=== PATIENT | male | born 1930 | race Caucasian/White ===

== ENCOUNTER 2020-06-06 12:18 | Inpatient (IN) ==
[2020-06-06] MEDS ORDERED: FUROSEMIDE 100 MG/10 ML VIAL IV STA (13:01)
[2020-06-06] MEDS ORDERED: FUROSEMIDE 100 MG/10 ML VIAL ONE (13:03)
[2020-06-06 13:12] LABS: Basophils % 0.2 % (0.0-0.8); Eosinophils % 0.2 % (0.00-10.9); Hematocrit 43.9 VOL% (42.0-52.0); Hemoglobin 13.6 GM/DL (14.0-18.0); Immature Granulocytes % 0.6 %; Immature Granulocytes Absolute 0.05 #; Lymphocytes # 0.7 10*3/uL (1.4-4.0); Lymphocytes % 8.5 % (21.2-54.2); Mean Platelet Volume 9.1 FL (9.6-12.0); Monocytes % 10.5 % (1.7-12.7); NRBC # 0.02 10*3/uL; Platelet Count 328 T/CUMM (130-400); Red Blood Count 4.93 MC/CUMM (3.8-5.5); Red Cell Distribution Width 15.7 % (9.3-17.3); White Blood Count 8.4 T/CUMM (4-12)
[2020-06-06 13:30] LABS: Albumin 3.5 G/DL (3.4-5.0); Bilirubin,Total 0.8 MG/DL (0.2-1.0); Osmolality,Calculated 291.1 MOS/KG (273-304); Potassium 4.9 MMOL/L (3.5-5.1); Total Protein 6.9 G/DL (5.0-7.5)
[2020-06-06 14:13] LABS: Bilirubin,Urine Negative (Negative); Blood, Urine Negative (Negative); Glucose,Urine (UA) Negative (Negative); Hyaline Casts,Urine 4 /LPF (0-3); Ketones,Urine Negative (Negative); Mucus,Urine Occasional /LPF (Occasional); Nitrite,Urine Negative (Negative); Protein,Urine Negative; RBC,Urine 1 /HPF (0-4); Sperm,Urine Occasional /HPF (Negative); Urine Appearance CLEAR (Clear); Urine Color Yellow (Yellow); Urine Specific Gravity 1.011 (1.001-1.035); Urine Urobilinogen < 2.0 EU/DL (0.2-1.0)
[2020-06-06] MEDS ORDERED: GLUCAGON 1 MG VIAL IM PRN (15:28)
[2020-06-06] MEDS ORDERED: MORPHINE 4 MG/1 ML VIAL IV PRN (15:28)
[2020-06-06] MEDS ORDERED: ACETAMINOPHEN 325 MG TABLET PO PRN (15:28)
[2020-06-06] MEDS ORDERED: DEXTROSE 50% 25 GM/50 ML VIAL IV PRN (15:28)
[2020-06-06] MEDS ORDERED: ONDANSETRON 4 MG/2 ML VIAL IV PRN (15:28)
[2020-06-06] MEDS ORDERED: MELATONIN PYRIDOXINE HCL PO PRN (15:33)
[2020-06-06] MEDS: INSULIN LISPRO 100 UNIT/ML SUBCUT SCH ×2 (17:44→21:10)
[2020-06-06] MEDS: FUROSEMIDE 40 MG/4 ML VIAL IV SCH (17:44)
[2020-06-06] MEDS: SODIUM CHLORIDE 0.45% 1,000 ML IV SCH (17:44)
[2020-06-06] MEDS: DOCUSATE SODIUM 100 MG CAPSULE PO SCH (21:31)
[2020-06-06] MEDS: DILTIAZEM 30 MG TABLET PO SCH (21:31)
[2020-06-06] MEDS: ENOXAPARIN 40 MG/0.4 ML SYRINGE SUBCUT SCH (21:31)
[2020-06-06] MEDS: GLIMEPIRIDE 2 MG TABLET PO SCH (21:31)
[2020-06-06] MEDS: traZODone 50 MG TABLET PO SCH (21:44)
[2020-06-07 05:44] LABS: Calcium 8.4 MG/DL (8.5-10.1); Osmolality,Calculated 293.7 MOS/KG (273-304)
[2020-06-07] MEDS: DOCUSATE SODIUM 100 MG CAPSULE PO SCH ×2 (09:36→21:55)
[2020-06-07] MEDS: DILTIAZEM 30 MG TABLET PO SCH ×3 (09:36→21:55)
[2020-06-07] MEDS: POTASSIUM CHLORIDE 20 MEQ TABLET PO SCH (09:37)
[2020-06-07] MEDS: cilostazoL 50 MG TABLET PO SCH ×2 (09:37→21:58)
[2020-06-07] MEDS: TAMSULOSIN 0.4 MG CAPSULE PO SCH (09:37)
[2020-06-07] MEDS: metOLazone 5 MG TABLET PO SCH (09:37)
[2020-06-07] MEDS: GLIMEPIRIDE 2 MG TABLET PO SCH ×2 (09:37→21:54)
[2020-06-07] MEDS: PANTOPRAZOLE 40 MG TABLET PO SCH (09:37)
[2020-06-07] MEDS: FUROSEMIDE 40 MG/4 ML VIAL IV SCH ×2 (09:43→16:19)
[2020-06-07] MEDS: MULTIVITAMIN (CENTRUM) TABLET PO SCH (09:44)
[2020-06-07] MEDS: INSULIN LISPRO 100 UNIT/ML SUBCUT SCH ×4 (09:59→21:55)
[2020-06-07] MEDS: NICOTINE 21 MG/24 HR PATCH TRANSDERM SCH (10:00)
[2020-06-07] MEDS: SODIUM CHLORIDE 0.45% 1,000 ML IV SCH (16:33)
[2020-06-07] MEDS: traZODone 50 MG TABLET PO SCH (21:55)
[2020-06-07] MEDS: ENOXAPARIN 40 MG/0.4 ML SYRINGE SUBCUT SCH (22:08)
[2020-06-08] MEDS: NICOTINE 21 MG/24 HR PATCH TRANSDERM SCH (08:13)
[2020-06-08] MEDS ORDERED: predniSONE 20 MG TABLET PO SCH (09:00)
[2020-06-08] MEDS: POTASSIUM CHLORIDE 20 MEQ TABLET PO SCH (09:23)
[2020-06-08] MEDS: PANTOPRAZOLE 40 MG TABLET PO SCH (09:23)
[2020-06-08] MEDS: DOCUSATE SODIUM 100 MG CAPSULE PO SCH ×2 (09:23→20:49)
[2020-06-08] MEDS: cilostazoL 50 MG TABLET PO SCH ×2 (09:23→20:49)
[2020-06-08] MEDS: GLIMEPIRIDE 2 MG TABLET PO SCH ×2 (09:23→20:49)
[2020-06-08] MEDS: MULTIVITAMIN (CENTRUM) TABLET PO SCH (09:23)
[2020-06-08] MEDS: DILTIAZEM 30 MG TABLET PO SCH ×3 (09:23→20:49)
[2020-06-08] MEDS: TAMSULOSIN 0.4 MG CAPSULE PO SCH (09:23)
[2020-06-08] MEDS: FUROSEMIDE 40 MG/4 ML VIAL IV SCH ×2 (09:27→16:54)
[2020-06-08] MEDS: INSULIN LISPRO 100 UNIT/ML SUBCUT SCH ×4 (09:27→20:52)
[2020-06-08] MEDS: metOLazone 5 MG TABLET PO SCH (09:27)
[2020-06-08] MEDS ORDERED: DIGOXIN 0.25 MG TABLET PO ONE (09:34)
[2020-06-08] MEDS ORDERED: MAGNESIUM HYDROXIDE SUSP 30 ML UDCUP PO PRN (15:43)
[2020-06-08] MEDS: SODIUM CHLORIDE 0.45% 1,000 ML IV SCH (16:10)
[2020-06-08] MEDS: traZODone 50 MG TABLET PO SCH (20:49)
[2020-06-08] MEDS: ENOXAPARIN 40 MG/0.4 ML SYRINGE SUBCUT SCH (20:50)
[2020-06-09 06:31] LABS: Basophils % 0.3 % (0.0-0.8); Eosinophils % 0.5 % (0.00-10.9); Hematocrit 42.4 VOL% (42.0-52.0); Immature Granulocytes % 0.5 %; Immature Granulocytes Absolute 0.03 #; Lymphocytes # 0.6 10*3/uL (1.4-4.0); Mean Corpuscular HGB Conc 30.7 GM/DL (32-36); Mean Corpuscular Volume 89.5 FL (87-102); Mean Platelet Volume 9.1 FL (9.6-12.0); Monocytes % 12.7 % (1.7-12.7); Platelet Count 298 T/CUMM (130-400); Red Blood Count 4.74 MC/CUMM (3.8-5.5); Red Cell Distribution Width 15.6 % (9.3-17.3); White Blood Count 6.2 T/CUMM (4-12)
[2020-06-09 06:52] LABS: Calcium 8.7 MG/DL (8.5-10.1); Osmolality,Calculated 286.2 MOS/KG (273-304); Potassium 3.9 MMOL/L (3.5-5.1)
[2020-06-09] MEDS ORDERED: FUROSEMIDE 80 MG TABLET PO SCH (08:24)
[2020-06-09] MEDS ORDERED: APIXABAN 2.5 MG TABLET PO SCH (09:00)
[2020-06-09] MEDS ORDERED: METOPROLOL TARTRATE 25 MG TABLET PO SCH (09:00)
[2020-06-09] MEDS: NICOTINE 21 MG/24 HR PATCH TRANSDERM SCH (10:25)
[2020-06-09] MEDS: DOCUSATE SODIUM 100 MG CAPSULE PO SCH (10:25)
[2020-06-09] MEDS: cilostazoL 50 MG TABLET PO SCH (10:26)
[2020-06-09] MEDS: POTASSIUM CHLORIDE 20 MEQ TABLET PO SCH (10:26)
[2020-06-09] MEDS: PANTOPRAZOLE 40 MG TABLET PO SCH (10:26)
[2020-06-09] MEDS: metOLazone 5 MG TABLET PO SCH (10:26)
[2020-06-09] MEDS: GLIMEPIRIDE 2 MG TABLET PO SCH (10:26)
[2020-06-09] MEDS: FUROSEMIDE 40 MG TABLET PO SCH ×2 (10:27→16:48)
[2020-06-09] MEDS: TAMSULOSIN 0.4 MG CAPSULE PO SCH (10:27)
[2020-06-09] MEDS: MULTIVITAMIN (CENTRUM) TABLET PO SCH (10:27)
[2020-06-09] MEDS: INSULIN LISPRO 100 UNIT/ML SUBCUT SCH ×3 (10:28→16:47)
[2020-06-09] MEDS: FUROSEMIDE 40 MG/4 ML VIAL IV SCH (10:40)
[2020-06-09] MEDS ORDERED: DIGOXIN 0.125 MG TABLET PO SCH (13:00)
[2020-06-09 16:33] VITALS: BP 95/74
[2020-06-09] MEDS ORDERED: SULFAMETHOX/TRIMETHOPRIM 800-160 MG TABLET PO SCH (21:00)
[2020-06-09] MEDS ORDERED: SILVER SULFADIAZINE 1% CREAM 25 GM TUBE TOP SCH (21:00)
== END 2020-06-09 18:19 | disposition hospice, home (50) | DRG 291 ==
LOC: N.ED 12:18 → N.EDINP 15:28 → N.TELES 17:11
PROVIDERS: ADMIT Family Medicine; ATTEND Family Medicine